=== PATIENT | male | born 1990 | race Caucasian/White ===

== ENCOUNTER 2017-09-28 17:24 | Emergency (ER) | payer OTHER ==
[2017-09-28 17:37] VITALS: BP 137/93
--- NOTE | 2017-09-28 18:05 | XRAY Preliminary Report ---
Exam: XR WRIST 4 VIEW RT IMPRESSION: Soft tissue swelling. [facility] SITE ID: [id number]
--- NOTE | 2017-09-28 18:06 | XRAY Preliminary Report ---
Exam: XR HAND 3 VIEW RT IMPRESSION: Soft tissue swelling. [facility] SITE ID: [id number]
--- NOTE | 2017-09-28 18:08 | XRAY Report ---
EXAM: RIGHT WRIST RADIOGRAPHY EXAM DATE: 09/28/2017 05:56 PM. CLINICAL HISTORY: Trauma, pain COMPARISON: None. TECHNIQUE: 4 views. FINDINGS: Bones: Normal. No fractures or bone lesions. Joints: Normal. No subluxations. Soft Tissues: Mild soft tissue swelling. IMPRESSION: Soft tissue swelling. [facility] Referring Provider Line: [phone] SITE ID: [id number]
--- NOTE | 2017-09-28 18:09 | XRAY Report ---
EXAM: RIGHT HAND RADIOGRAPHY EXAM DATE: 09/28/2017 05:56 PM. CLINICAL HISTORY: Trauma, pain. COMPARISON: None. TECHNIQUE: 3 views. FINDINGS: Bones: Normal. No fractures or bone lesions. Joints: Normal. No subluxations. Soft Tissues: Diffuse soft tissue swelling. IMPRESSION: Soft tissue swelling. [facility] Referring Provider Line: [phone] SITE ID: [id number]
--- NOTE | 2017-09-28 18:17 | ED Physician Documentation ---
PD HPI UPPER EXT INJURY - Stated complaint Stated Complaint: R HAND INJ - Chief complaint Chief Complaint: Ext Problem - History obtained from History obtained from: Patient - History of Present Illness Location: Right, Hand Type of injury: Blunt / blow Where injury occurred: Home Timing - onset: How many days ago (2) Associated symptoms: Swelling Similar symptoms before: Has not had sx before - Additonal information Additional information: The patient is an otherwise healthy 27-year-old male who slammed a door with his right hand 2 days ago, and presents now with pain and swelling of his right hand and wrist. He is right hand dominant. He denies history of similar symptoms in the past. Review of Systems Constitutional: denies: Fever Skin: denies: Rash, Abrasion (s) Musculoskeletal: reports: Extremity pain, Extremity swelling (right hand) Neurologic: denies: Focal weakness, Numbness, Headache PD PAST MEDICAL HISTORY - Past Medical History Neuro: None Endocrine/Autoimmune: None - Present Medications Home Medications: Ambulatory Orders Medication Instructions Recorded Confirmed No Known Home Medications [No 09/28/17 09/28/17 Known Home Medications] - Allergies Allergies/Adverse Reactions: Allergies Allergy/AdvReac Type Severity Reaction Status Date / Time No Known Drug Allergies Allergy Verified 09/28/17 17:37 - Living Situation Living Situation: reports: With spouse/s.o. - Social History Does the pt smoke?: Yes Smoking Status: Current every day smoker PD ED PE NORMAL - Vitals Vital signs reviewed: Yes (Mild hypertension initially.) - General General: Alert and oriented X 3, Well developed/nourished - HEENT HEENT: Atraumatic - Respiratory Respiratory: No respiratory distress - Derm Derm: No rash - Extremities Extremities: Other (There is soft tissue swelling of the right hand, particularly over the ulnar aspect, extending to the ulnar side of the wrist. There is mild ecchymosis noted, without break in the integument. There is mild tenderness to palpation on the ulnar side of the wrist. Distal neurovascular is intact.) - Neuro Neuro: Alert and oriented X 3, No motor deficit, No sensory deficit Results - Vitals Vitals: Oxygen O2 Source Room air - Rads (name of study) right hand Radiology: Prelim report reviewed, EMP read contemporaneously, See rad report ( Soft tissue swelling.) right wrist Radiology: Prelim report reviewed, EMP read contemporaneously, See rad report ( Soft tissue swelling.) PD MEDICAL DECISION MAKING - ED course Complexity details: reviewed results, considered differential, d/w patient, d/w family ED course: The patient's presentation is most consistent with contusion to the right hand, without bony abnormality detected on x-ray examination. I discussed with him and his the results of the imaging studies, expected course of injury, symptomatic treatment and outpatient follow-up, as well as potentially worrisome signs or symptoms that should prompt reevaluation in the emergency department. Departure - Departure Disposition: 01 Home, Self Care Clinical Impression: Contusion of right hand Qualifiers: Encounter type: initial encounter Qualified Code(s): S60.221A - Contusion of right hand, initial encounter Condition: Stable Instructions: ED Contusion Hand Follow-Up: MONAE Reese [Provider Group] Comments: Keep your right hand elevated as much of the time as possible. You can use Tylenol or ibuprofen if needed for discomfort. Let pain be your guide to activity level. Follow up with your primary physician, or return to the emergency department, if you develop increasing pain or swelling of your hand, or any other worsening symptoms. Discharge Date/Time: 09/28/17 18:20
== END 2017-09-28 18:20 | disposition home or self-care (01) ==
LOC: ED 17:24
DX: S60.221A Contusion of right hand, initial encounter (principal); W23.1XXA Caught, crushed, jammed, or pinched between stationary objects, initial encounter
CPT/HCPCS: 99282

== ENCOUNTER 2017-11-01 12:14 | Emergency (ER) | payer OTHER ==
[2017-11-01] MEDS ORDERED: predniSONE 20 MG TABLET PO STA (13:35)
--- NOTE | 2017-11-01 13:37 | ED Physician Documentation ---
PD HPI SKIN - Stated complaint Stated Complaint: RASH - Chief complaint Chief Complaint: Wound - History obtained from History obtained from: Patient - History of Present Illness Timing - onset: Other (He finished a course of penicillin about 10 days ago for an ear infection on the right. The infection is all better. Over the last few days he developed an itchy rash that started in the popliteal fossae bilaterally and now is on the trunk. It spares the palms and soles. It is itchy, he has not had any skin peeling.) Review of Systems Constitutional: denies: Fever, Chills Cardiac: denies: Chest pain / pressure, Palpitations Respiratory: denies: Dyspnea, Cough GI: denies: Abdominal Pain PD PAST MEDICAL HISTORY - Past Medical History Neuro: None Endocrine/Autoimmune: None - Past Surgical History Past Surgical History: No - Present Medications Home Medications: Ambulatory Orders Medication Instructions Recorded Confirmed predniSONE [Deltasone] 60 mg PO DAILY 5 Days tablet 11/01/17 - Allergies Allergies/Adverse Reactions: Allergies Allergy/AdvReac Type Severity Reaction Status Date / Time No Known Drug Allergies Allergy Verified 09/28/17 17:37 - Social History Does the pt smoke?: Yes Smoking Status: Current every day smoker Does the pt drink ETOH?: Yes Does the pt have substance abuse?: No - Immunizations Immunizations are current?: Yes - POLST Patient has POLST: No PD ED PE NORMAL - Vitals Vital signs reviewed: Yes - General General: Alert and oriented X 3, No acute distress - HEENT HEENT: Ears normal, Pharynx benign - Cardiac Cardiac: RRR, No murmur - Respiratory Respiratory: No respiratory distress, Clear bilaterally - Abdomen Abdomen: Non tender - Derm Derm: Other (He is a pretty significant morbilliform rash that is most impressive on the lower anterior trunk but goes on to the arms and back. It spares the palms.) - Neuro Neuro: Alert and oriented X 3, Normal speech Results - Vitals Vitals: Vital Signs - 24 hr 11/01/17 12:23 Temperature 36.6 C Heart Rate 111 H Respiratory 17 Rate Blood Pressure 138/74 H O2 Saturation 100 Oxygen O2 Source Room air Departure - Departure Disposition: Home, Self Care Clinical Impression: Fixed drug eruption Condition: Good Record reviewed to determine appropriate education?: Yes Instructions: ED Drug React Allergic Prescriptions: predniSONE [Deltasone] 60 mg PO DAILY 5 Days tablet Comments: Call your doctor to arrange a follow-up appointment, make the next available appointment. In the interim, return anytime if worse or if new symptoms develop. Your blood pressure was elevated today on check into the emergency department. This does not mean that you have hypertension, it is a common phenomenon to come to the emergency department and have elevated blood pressure. I recommend that you see your primary care physician within the week to have it rechecked when you are feeling better.
[2017-11-01 13:45] VITALS: BP 124/73
== END 2017-11-01 13:44 | disposition home or self-care (01) ==
LOC: ED 12:14
DX: L27.1 Localized skin eruption due to drugs and medicaments taken internally (principal); T36.0X5A Adverse effect of penicillins, initial encounter; R03.0 Elevated blood-pressure reading, without diagnosis of hypertension; F17.200 Nicotine dependence, unspecified, uncomplicated
CPT/HCPCS: 99283; J7512